=== PATIENT | male | born 1965 | race Caucasian/White ===

== ENCOUNTER 2017-07-22 09:23 | Day surgery (SDC) | payer OTHER ==
[~2017-07-22 09:23] MED LIST: LIDOCAINE HCL 1% MPF SOL ONE; PROPOFOL 500 MG/50 ML EMU IV ONE
[2017-07-22 11:37] VITALS: RESP 20; TEMP 97.7; O2SAT 97
[2017-07-22 11:42] VITALS: BP 118/71; PULSE 65
== END 2017-07-22 11:50 | disposition home or self-care (01) | DRG 951 ==
LOC: SURG 09:23
PROVIDERS: ATTEND Surgery
DX: Z12.11 Encounter for screening for malignant neoplasm of colon (principal)
CPT/HCPCS: J2001; J2704

== ENCOUNTER 2017-08-02 00:01 | Emergency (ER) | payer OTHER ==
[2017-08-02 00:02] VITALS: O2SAT 97
[2017-08-02 00:06] VITALS: BP 147/83; PULSE 78; RESP 20; TEMP 98.8
[2017-08-02] MEDS ORDERED: AMOXICILLIN(FRIDGE) 125/5 ML BOTTLE PO ONE (00:28)
[2017-08-02] MEDS ORDERED: AMOXICILLIN(FRIDGE) 125/5 ML BOTTLE ONE (00:29)
== END 2017-08-02 00:44 | disposition home or self-care (01) | DRG 153 ==
LOC: ED 00:01
DX: J06.9 Acute upper respiratory infection, unspecified (principal); H92.01 Otalgia, right ear
CPT/HCPCS: 87804; 99282